=== PATIENT | female | born 1940 | race Caucasian/White ===

== ENCOUNTER → 2019-07-06 | Outpatient (CLI) | payer MEDICARE, OTHER ==
[2019-07-06 19:46] LABS: Alpha Fetoprotein, Tumor Mkr 15.4 ng/mL (0.0-7.9)
[2019-07-06 20:14] LABS: Albumin 4.8 g/dL (3.80-4.90); Albumin/Globulin Ratio 2.82 (1.60-3.17); Bilirubin, Conjugated 0.2 mg/dL (0.20-0.40); Bilirubin,Unconjugated 0.5 mg/dL; Globulin 1.7 g/dL (1.6-3.3); Total Bilirubin 0.7 mg/dL (0.3-1.2); Total Protein 6.5 g/dL (6.2-8.2)
[2019-07-06 21:40] LABS: Hepatitis A Antibody IgM Non-Reactive (Non-Reactive); Hepatitis B Core IgM Non-Reactive (Non-Reactive); Hepatitis B Surface Antigen Non-Reactive (Non-Reactive); Hepatitis C IgG Antibody Non-Reactive (Non-Reactive)
== END | disposition home or self-care (01) ==
LOC: LABWHC1 12:41
PROVIDERS: ATTEND Nurse Practitioner
DX: K76.9 Liver disease, unspecified (principal)
CPT/HCPCS: 36415; 80074; 80076; 82105

== ENCOUNTER → 2019-07-22 | Outpatient (CLI) | payer MEDICARE, OTHER ==
--- NOTE | 2019-07-22 12:06 | MR ---
MR liver with and without contrast HISTORY: Liver disease Multiplanar multisequence and postcontrast images obtained through the liver following 6 cc Gadavist IV Correlation to CT abdomen pelvis from outside institution dated 08/10/2017, 06/07/2019 Multiple cystic foci are scattered within the liver. The peripheral focus of abnormal density seen on CT along the dome of the liver at the level of the right hemidiaphragm is again noted and does not s how any significant enhancement measuring approximately 2 cm in diameter, internal calcification seen on CT are not seen on MRI with certainty. No abnormal enhancement within the liver. Some signal drop on out of phase imaging in the liver could be indicative of hepatic steatosis. Hepatic veins, portal veins are enhancing and are patent. The gallbladder is within normal limits. Pancreas is unremarkable. Scattered T2 bright foci associate d with the left kidney likely represent cysts. The spleen is unremarkable. There is no retroperitonea l adenopathy. Lung bases are clear. Breast prostheses are in place. Abdominal aorta is not aneurysmal in its visualized portions. Adrenal glands are unremarkable. IMPRESSION: Stable liver findings. Possible underlying hepatic steatosis. Indeterminate lesion along the hemidiaphragm in the right lobe is likely benign.
== END | disposition home or self-care (01) ==
LOC: RADMRIMAIN 09:54
PROVIDERS: ATTEND Internal Medicine Gastroenterology
DX: K76.9 Liver disease, unspecified (principal)
CPT/HCPCS: 74183; A9585

== ENCOUNTER → 2019-09-12 | Outpatient (CLI) | payer MEDICARE, OTHER | END | disposition home or self-care (01) | LOC: LABWHC1 10:40 | PROVIDERS: ATTEND Internal Medicine Gastroenterology | DX: Z11.59 Encounter for screening for other viral diseases (principal) | CPT/HCPCS: 87635 ==

== ENCOUNTER → 2019-09-14 | Day surgery (SDC) | payer MEDICARE, OTHER ==
[2019-09-13 11:13] VITALS: BMI 27.1
[~2019-09-14] MED LIST: LACTATED RINGERS 1,000 ML IV ONE; LACTATED RINGERS 1,000 ML IV SCH; LIDOCAINE 1% (10MG/ML) FOR IV START INTRADERMA ONE; PROPOFOL 10 MG/ML 20 ML VIAL IV ONE
[2019-09-14 08:04] VITALS: RESP 18; TEMP 97.6
--- NOTE | 2019-09-14 08:30 | P.PCN ---
Date of Procedure: 09/14/19 Procedure(s) Performed: BRIEF HISTORY: Patient is a 79-year-old, pleasant, white female, scheduled for an upper endoscopy as a part of value should of epigastric pain/abdominal bloating for the last 6 months duration. She was recently recently started on the Prilosec 20 mg daily and symptoms are gradually improving. However she continues to have some abdominal bloating. On diet modification with some help.. PROCEDURE PERFORMED: Esophagogastroduodenoscopy with biopsy. PREOPERATIVE DIAGNOSIS: Epigastric pain/abdominal bloating of 6 months duration. IV sedation per anesthesia. PROCEDURE: After informed consent was obtained, the patient was brought into the endoscopy unit. IV sedation was administered by Anesthesia under continuous monitoring. Initially the Olympus GIF-140 video endoscope was inserted into the mouth. Esophagus intubated without any difficulty. It was gradually advanced in to the stomach and duodenum and carefully examined. The bulb and the second part of the duodenum appeared normal. Abscesses were done from the duodenum to rule out celiac disease The scope at this time was withdrawn to the stomach, adequately insufflated with air, and upon careful examination, mucosa of the antrum had mild gastritis and biopsies were done from this area. The, body, cardia and the fundus appeared normal. The scope was then withdrawn into the esophagus. The GE junction was located at 39 cm from the incisors. The esophagus appeared normal. There were no erosions or ulcerations seen and the patient tolerated the procedure well. IMPRESSION: 1. Mild antral gastritis. 2. Normal-appearing esophagus with no evidence of esophagitis. RECOMMENDATIONS: The findings of this examination were discussed with the patient as well his family. She will follow with the biopsy results She was advised to continue with diet modification and Prilosec 20 mg daily and she'll be seen in office in a month.
[2019-09-14 08:55] VITALS: BP 118/59; PULSE 65
== END ==
LOC: ORWHC2ENDO 07:39
PROVIDERS: ATTEND Internal Medicine Gastroenterology
DX: K29.50 Unspecified chronic gastritis without bleeding (principal); Z91.040 Latex allergy status; Z79.899 Other long term (current) drug therapy
CPT/HCPCS: 88305; 43239; J2704

== ENCOUNTER → 2020-01-24 | Outpatient (CLI) | payer MEDICARE, OTHER ==
--- NOTE | 2020-01-25 08:24 | BMR ---
EXAMINATION TYPE: MR breast BILAT wo/w con DATE OF EXAM: 01/24/2020 COMPARISON: NONE HISTORY: Rupture right breast. History of silicone implants placed 4 years ago bilaterally. CONTRAST: Multiplanar, multisequence images of the breasts were acquired utilizing 6 mL intravenous Gadavist ga dolinium contrast. TECHNIQUE: A series of fat and water weighted images in the long and short axis views of both breasts are obtained in conjunction with dynamic contrast MRI with subtraction technique. Three-dimensional and additional postprocessing imaging is created on independent workstation and reviewed during offi [facility] interpretation of this study. REFERENCE: None. FINDINGS: Breast implants are symmetric and very similar in size. Subpectoral location is present darius aterally. There is no suspicious focus of silicone in outside soft tissue to suggest extracapsular ru pture. No significant infolding or luminal collapse to suggest intracapsular rupture. Occasional prom inent peripheral fold is noted bilaterally. T1-weighted images show no suspicious fat-containing masses. No suspicious axillary adenopathy is see n. T2-weighted images show no significant cystic change. Dynamic postcontrast delayed images show no suspicious intramammary adenopathy. Breast parenchyma is entirely separately replaced. With regards to the right breast there is lobulated contour and some artifact mid level laterally, th ere is poor visualization of the nipple which is felt medially positioned axial image 29 minimal over lying subcutaneous fat at this level is noted. No suspicious skin thickening is seen. The chest wall is intact. No pathologic enhancement is noted. With regards to the left breast there is no suspicious skin thickening. No pathologic enhancement or enhancing masses. The chest wall is intact. No suspicious findings in the visualized thorax. IMPRESSION: No MRI evidence for implant rupture bilaterally. BI-RADS 2 benign findings both breasts.
== END | disposition home or self-care (01) ==
LOC: RADMRIMAIN 12:47
PROVIDERS: ATTEND Plastic Surgery
DX: T85.49XA Other mechanical complication of breast prosthesis and implant, initial encounter (principal)
CPT/HCPCS: C8937; C8908; A9585; 77049

== ENCOUNTER → 2020-01-25 | Outpatient (CLI) | payer MEDICARE, OTHER ==
--- NOTE | 2020-01-26 17:34 | MR ---
EXAMINATION TYPE: MR neck wo/w con DATE OF EXAM: 01/25/2020 COMPARISON: None HISTORY: Lumps on neck and chest area CONTRAST: Standard multiplanar, multisequence MRI departmental protocol utilizing 6 mL intravenous Gadavist kerry olinium contrast. There is a marker placed on the skin surface at this particular sternal notch and also slightly infer iorly at the anterior aspect of the manubrium. The sternum appears intact. The subcutaneous tissues i n this area appear intact. No discrete mass is identified. Epiglottis is normal. The left side parotid gland and submandibular salivary gland are larger than th e right side. No discrete masses seen. The tonsils and adenoids are within normal limits. The contras t images show no pathologic enhancement. There is no evidence of anterior mediastinal mass. The thyro id gland is symmetric. There is no evidence of any significant cervical adenopathy. IMPRESSION: No evidence of a discrete neck mass in the area of concern anterior to the manubrium. Asymmetric sali vary glands without a discrete mass seen.
== END | disposition home or self-care (01) ==
LOC: RADMRIMAIN 14:20
PROVIDERS: ATTEND Plastic Surgery
DX: K11.8 Other diseases of salivary glands (principal)
CPT/HCPCS: 70543; A9585

== ENCOUNTER 2020-05-23 07:59 | Day surgery (SDC) | payer MEDICARE, OTHER ==
[2020-05-21 12:54] VITALS: BMI 26.2
[~2020-05-23 07:59] MED LIST changes: -LACTATED RINGERS 1,000 ML IV ONE; -LIDOCAINE 1% (10MG/ML) FOR IV START INTRADERMA ONE; +LIDOCAINE 1% (10MG/ML) FOR IV START INTRADERMA PRN; -PROPOFOL 10 MG/ML 20 ML VIAL IV ONE
[2020-05-23 08:25] VITALS: TEMP 96.9
[2020-05-23] MEDS ORDERED: PROPOFOL 10 MG/ML 20 ML VIAL IV ONE (08:48)
--- NOTE | 2020-05-23 09:06 | P.PCN ---
Date of Procedure: 05/23/20 Procedure(s) Performed: BRIEF HISTORY: Patient is a 80-year-old pleasant female scheduled for an elective colonoscopy as a part of evaluation of prior history of colon polyps. Last colonoscopy was 5 years ago. PROCEDURE PERFORMED: Colonoscopy with snare polypectomy. PREOPERATIVE DIAGNOSIS: History of colon polyps. IV sedation per Anesthesia. PROCEDURE: After informed consent was obtained, the patient, was brought into the endoscopy unit. IV sedation was administered by Anesthesia under continuous monitoring. Digital rectal examination was normal. Initially the Olympus CF-160 flexible video colonoscope was then inserted in the rectum, gradually advanced into the cecum without any difficulty. Careful examination was performed as the scope was gradually being withdrawn. Ileocecal valve and the appendiceal orifice were visualized and appeared normal. Prep was excellent. Mucosa of the cecum, ascending colon, transverse colon, descending colon, appeared normal. The sigmoid colon there was was a 1 cm flat polyp that was removed by snare polypectomy. Rest of the sigmoid colon, and rectum appeared normal. Retroflexion was performed in the rectum and no lesions were seen. The patient tolerated the procedure well. IMPRESSION: 7 mm flat; sigmoid polyp status post polypectomy Rest of the colon appeared normal RECOMMENDATIONS: Findings of this examination were discussed with the patient as well as her family. She was advised to be a high-fiber diet. Follow with the biopsy results. If the biopsy shows an adenoma she can have a repeat colonoscopy in 5 years from now based on her overall medical condition..
[2020-05-23 09:38] VITALS: BP 126/81; PULSE 60; RESP 20
== END 2020-05-23 10:10 | disposition home or self-care (01) ==
LOC: ORWHC2ENDO 07:59
PROVIDERS: ATTEND Internal Medicine Gastroenterology
DX: Z12.11 Encounter for screening for malignant neoplasm of colon (principal); D12.5 Benign neoplasm of sigmoid colon; Z86.010 Personal history of colon polyps; Z91.040 Latex allergy status
CPT/HCPCS: 88305; 45385; J2704

== ENCOUNTER → 2020-08-16 | Outpatient (CLI) | payer MEDICARE, OTHER | END | disposition home or self-care (01) | LOC: LABWHC1 12:19 | PROVIDERS: ATTEND Otolaryngology | DX: Z01.812 Encounter for preprocedural laboratory examination (principal); Z11.52 Encounter for screening for COVID-19 | CPT/HCPCS: U0003; C9803 ==